=== PATIENT | female | born 1930 | race Two or more races ===

== ENCOUNTER 2018-12-07 16:19 | Emergency (ER) | payer MEDICARE, OTHER ==
[~2018-12-07] VITALS: Wt 47.0 kg
[~2018-12-07 16:19] MED LIST: ACET-915; DOCU-144; ENOX40DI14; LACT20SO12; MAGN400O19; MEGE40TA; METO-448; METO5VIA; MORP1VIA; PANT40TA3; VICES; ZOLP5TAB
[2018-12-07 16:21] VITALS: Wt 47.0 kg
--- NOTE | 2018-12-07 19:53 | ERD ---
ER Documentation Chief Complaint Chief Complaint back pain x 1 mos, ap, send for further eval HPI The patient is a 88-year-old female, presenting to the ER because of right lower back pain for more than a month, with intermittent abdominal pain. She was seen by her physician today who sent her to the ER for further evaluation. She denies fever, chills, neck pain, chest pain, dyspnea, vomiting, dysuria, diarrhea. She denies fecal/urinary incontinence Medical history: Hypertension, constipation, anemia, glaucoma Past surgical history: Left hip arthroplasty ROS All systems reviewed and are negative except as per history of present illness. Medications Home Meds Active Scripts Acetaminophen* (Tylenol*) 325 Mg Tablet, 2 TAB PO Q6 PRN for PAIN AND OR ELEVATED TEMP, #20 TAB Prov:CLAUDE CHAU MD 12/07/18 Reported Medications Zolpidem Tartrate* (Ambien*) 5 Mg Tablet 01/24/10 Acetaminophen/Hydrocodone (Vicodin Es) 1 Tab Tab 01/24/10 Morphine Sulfate (Morphine Sulfate) 1 Mg/Ml Vial 01/24/10 Metoclopramide Hcl (Reglan) 5 Mg/Ml Vial 01/24/10 Lactulose* (Cephulac*) 20 Gm/30 Ml Soln 01/24/10 Acetaminophen* (Tylenol*) 325 Mg Tab 01/24/10 Pantoprazole* (Protonix*) 40 Mg Tablet.dr 01/24/10 Magnesium Hydroxide* (Milk Of Magnesia*) 400 Mg/5 Ml Oral.susp 01/24/10 Metoprolol Tartrate* (Lopressor*) 25 Mg Tab 01/24/10 Megestrol Acetate* (Megace*) 40 Mg Tab 01/24/10 Enoxaparin Sodium* (Lovenox*) 40 Mg/0.4 Ml Disp.syrin 01/24/10 Docusate Sodium* (Colace*) 100 Mg Capsule 01/24/10 Allergies Allergies: Coded Allergies: No Known Allergies (Verified Allergy, Unknown, 01/24/10) PMhx/Soc History of Surgery: No Anesthesia Reaction: No Hx Neurological Disorder: No Hx Respiratory Disorders: No Hx Cardiac Disorders: No Hx Psychiatric Problems: No Hx Miscellaneous Medical Probl: Yes (S/P LT HEMIARTHROPLASTY 01/24) Hx Alcohol Use: No Hx Substance Use: No Hx Tobacco Use: No Physical Exam Vitals Vital Signs Date Temp Pulse Resp B/P (MAP) Pulse Ox O2 O2 Flow FiO2 Time Delivery Rate 12/07/18 99 17 142/67 99 Room Air 23:29 (92) 12/07/18 100.5 133 18 132/63 99 16:21 (86) Physical Exam Const: No acute distress. Head: Atraumatic. Eyes: Normal Conjunctiva. ENT: Normal External Ears, Nose and Mouth. Neck: Full range of motion. No meningismus. Resp: Clear to auscultation bilaterally. Cardio: Regular tachycardic Abd: Soft, non distended, normal bowel sounds, mild, vague abdominal discomfort, no rigidity/rebound/CVA tenderness. Skin: No petechiae or rashes. Back: No midline or flank tenderness. Ext: No cyanosis, or edema. Neur: Awake and alert. No focal deficit Psych: Anxious Result Diagram: 12/07/18204712/07/182047 Results 24 hrs Laboratory Tests Test 12/07/18 20:40 12/07/18 20:48 12/07/18 20:54 12/07/18 21:02 Urine Color STRAW Urine Clarity CLEAR Urine pH 6.0 Urine Specific 1.006 [place] Urine Ketones NEGATIVE mg/dL Urine Nitrite NEGATIVE mg/dL Urine Bilirubin NEGATIVE mg/dL Urine NEGATIVE mg/dL Urobilinogen Urine Leukocyte NEGATIVE Anderson/ul Esterase Urine Hemoglobin NEGATIVE mg/dL Urine Glucose NEGATIVE mg/dL Urine Total NEGATIVE mg/dl Protein White Blood Count 7.3 10^3/ul Red Blood Count 3.76 10^6/ul Hemoglobin 11.6 g/dl Hematocrit 34.6 % Mean Corpuscular 92.0 fl Volume Mean Corpuscular 30.9 pg Hemoglobin Mean Corpuscular 33.5 g/dl Hemoglobin Concen t Red Cell 12.9 % Distribution Width Platelet Count 418 10^3/UL Mean Platelet 9.4 fl Volume Immature 0.400 % Granulocytes % Neutrophils % 49.1 % Lymphocytes % 38.0 % Monocytes % 11.0 % Eosinophils % 0.8 % Basophils % 0.7 % Nucleated Red 0.0 /100WBC Blood Cells % Immature 0.030 10^3/ul Granulocytes # Neutrophils # 3.6 10^3/ul Lymphocytes # 2.8 10^3/ul Monocytes # 0.8 10^3/ul Eosinophils # 0.1 10^3/ul Basophils # 0.1 10^3/ul Nucleated Red 0.0 10^3/ul Blood Cells # Prothrombin Time 13.3 Sec Prothrombin Time 1.0 Ratio INR International 1.00 Normalized Ratio Activated 34.2 Sec Partial Thrombopl ast Time Sodium Level 138 mmol/L Potassium Level 4.0 mmol/L Chloride Level 103 mmol/L Carbon Dioxide 24 mmol/L Level Anion Gap 11 Blood Urea 19 mg/dl Nitrogen Creatinine 0.92 mg/dl Est Glomerular mL/min Filtrat Rate mL/min Glucose Level 124 mg/dl Calcium Level 9.7 mg/dl Total Bilirubin 0.4 mg/dl Direct Bilirubin 0.00 mg/dl Indirect 0.4 mg/dl Bilirubin Aspartate Amino 38 IU/L Transf (AST/SGOT) Alanine 24 IU/L Aminotransferase (ALT/SGPT) Alkaline 213 IU/L Phosphatase Troponin I < 0.012 ng/ml Total Protein 7.9 g/dl Albumin 4.1 g/dl Globulin 3.80 g/dl Albumin/Globulin 1.07 Ratio POC Venous 1.1 mmol/L Lactate Bedside Urine pH 6.5 (LAB) Bedside Urine Negative Protein (LAB) Bedside Urine Negative Glucose (UA) Bedside Urine Negative Ketones (LAB) Bedside Urine Negative Blood Bedside Urine Negative Nitrite (LAB) Bedside Urine Negative Leukocyte Esteras e (L Current Medications Medications Dose Sig/Juliette Start Time Status Last (Trade) Ordered Route PRN Stop Time Admin Dose Reason Admin 650 mg ONCE ONCE 12/07/18 DC 12/07/18 Acetaminophen PO 20:30 21:23 (Tylenol 12/07/18 20:31 Tab) Ketorolac 15 mg ONCE STAT 12/07/18 DC Tromethamine IV 23:24 (Toradol) 12/07/18 23:25 Procedures/[place] [address] Radiology Main Line: [phone] DIAGNOSTIC IMAGING REPORT Patient: JD CHOUDHARY : 1930 Age: 88 Sex: F MR #: [id number] DOS: 12/07/182004 Ordering MD: CLAUDE CHAU MD Location: E/R Room/Bed: PROCEDURE: CT ABDOMEN AND PELVIS WITHOUT CONTRAST. CLINICAL INDICATION: Abdominal and back pain TECHNIQUE: CT scan of the abdomen and pelvis without contrast was performed on a multidetector high-resolution CT scanner. The patient was scanned without intravenous contrast. Coronal and sagittal reformatted images were obtained from the axial source images. Images were reviewed on a high-resolution PACS workstation. The total exam CTDI equals the 8.1 mGy and the total exam DLP equals 300 sign 0.3 mGy-cm. One or more of the following dose reduction techniques were used: Automated exposure control. Adjustment of the mA and/or kV according to patient size. Use of iterative reconstruction technique. DICOM images are available COMPARISON: None FINDINGS: CT abdomen: Lung bases are clear. Heart size is within normal limits. No significant pericardial effusion. The liver is mildly enlarged. Probable hepatic cyst is noted within left lobe liver measuring up to 1.8 cm. Gallbladder demonstrates gallstones. No evidence of intrahepatic or extrahepatic biliary dilatation. The spleen and pancreas are within normal limits. Both adrenal glands are within normal limits. Both kidneys are in normal anatomic position. No evidence of obstruction or hy dronephrosis. No gross renal/ureteric calculi. The visualized GI tract demonstrates a moderate size hiatal hernia. Thickening of the morse of the stomach. No evidence of bowel obstruction. Stool filled loops of large bowel suggestive of constipation. The appendix is not visualized. There is a fat-containing umbilical hernia. Diffuse atherosclerotic calcification of the aorta is identified. Several shoddy retroperitoneal lymph nodes are identified. CT pelvis: The bladder is within normal limits. Uterus is calcified. Rectosigmoid colon demonstrates diverticulosis. No significant free fluid. No significant pelvic lymphadenopathy. The visualized osseous structures demonstrates left hip replacement and multilevel degenerative disease of lumbosacral spine. There is generalized osteopenia. IMPRESSION: 1. Moderate size hiatal hernia. Thickening of the morse of the stomach, although this may be secondary to incomplete distension, gastritis is not excluded. 2. No evidence of bowel obstruction. Stool filled loops of large bowel suggestive of constipation. The appendix is not visualized, however no evidence of inflammatory changes within the right lower quadrant. 3. Sigmoid diverticulosis without gross evidence of diverticulitis. 4. Fat-containing umbilical hernia. 5. Atherosclerotic disease of the aorta. 6. Cholelithiasis, without gross CT inflammatory changes at this time. 7. Mild hepatomegaly and 1.8 cm hepatic lobe cyst. RPTAT: [facility] Maurice Singh, Physician Date Time Electronically viewed and signed by Maurice Singh, Physician on 12/07/2018 23:05 JL/ CC: CLAUDE CHAU MD [id number] [place] [id number] Radiology Main Line: [phone] DIAGNOSTIC IMAGING REPORT Patient: JD CHOUDHARY : 1930 Age: 88 Sex: F MR #: [id number] DOS: 12/07/182004 Ordering MD: CLAUDE CHAU MD Location: E/R Room/Bed: PROCEDURE: XR Chest, 1 View CLINICAL INDICATION: Sepsis. TECHNIQUE: Frontal view of the chest. COMPARISON: None FINDINGS: LUNGS: No consolidative pulmonary infiltrates noted. PLEURAL SPACE: Unremarkable. No pneumothorax. HEART: Unremarkable. No cardiomegaly. MEDIASTINUM: A midline hiatal hernia is noted. BONES/JOINTS: Degenerative changes of the thoracic spine are noted. VASCULATURE: The thoracic aorta is tortuous and atherosclerotic. IMPRESSION: No consolidative pulmonary infiltrates noted. RPTAT: [facility] Aster Caputo, Physician [employer] Judge Date Time Electronically viewed and signed by Aster Caputo Physician [employer] Judge on 04/2019 20:24 RmC/ CC: CLAUDE CHAU MD [id number] EKG: Read by emergency physician Rate/Rhythm: Sinus Tach 131 beats/min QRS, ST, T-waves: No ST elevation, no T inversion, artifacts Impression: abnormal EKG MEDICAL MAKING DECISION: The patient is a 80-year-old female, presenting with cholelithiasis, back pain. She was treated with Tylenol and Toradol and 15 mg IV for pain with good response, is stable for present follow-up The differential diagnoses considered include but are not limited to cystitis, pyelonephritis, cholelithiasis, cholecystitis, choledocholithiasis, chola ngitis, pancreatitis, hepatitis, gastritis, peptic ulcer disease, gastric ulcer, appendicitis, diverticulitis, partial small bowel obstruction. Departure Diagnosis: Primary Impression: Cholelithiasis Additional Impressions: Back pain Anemia Condition: Good Comments She was discharged with Tylenol I discussed the findings with the patient. I advised the patient to follow-up with the surgeon Dr. Benavidez in 1 to 2 days, sooner if needed and return if any concern. Disclaimer: Inadvertent spelling and grammatical errors are likely due to EHR/dictation software use and do not reflect on the overall quality of patient care. Also, please note that the electronic time recorded on this note does not necessarily reflect the actual time of the patient encounter. CLAUDE CHAU MD Dec 07, 2018 19:53
[2018-12-07] MEDS ORDERED: ACETAMINOPHEN 325 MG TAB PO ONE (20:30)
[2018-12-07] MEDS ORDERED: KETOROLAC 15 MG INJ IV STA (23:24)
[2018-12-07] MEDS ORDERED: ACET325T33 PO (23:36)
[2018-12-08 00:14] VITALS: BP 136/70; PULSE 78; RESP 21
== END 2018-12-08 00:26 | disposition home or self-care (01) ==
LOC: E/R 16:19
DX: K80.20 Calculus of gallbladder without cholecystitis without obstruction (principal); I10 Essential (primary) hypertension; D64.9 Anemia, unspecified; R10.9 Unspecified abdominal pain
CPT/HCPCS: 36415; 71045; 74176; 80053; 81003; 83605; 84484; 85025; 85610; 85730; 87086; 93005